=== PATIENT | male | born 1975 | race Two or more races ===

== ENCOUNTER 2023-03-05 06:07 | Outpatient (CLI) | payer OTHER ==
[~2023-03-05 06:07] MED LIST: ALLERGY RELIEF10 M3; BUPROPION XL450 MG; CLONAZEPAM2 MG PO; DAFLONEX-XL 11300 MG PO; LANSOPRAZOL-AM1 EACH PO; LIPITOR20 MG PO; MOBIC7.5 MG; MONTELUKAST SODI4 M1; PREGABALIN75 MG PO; SERTRALINE20 MG/1 ML; SYNTHROID50 MCG PO; ZYLOPRIM100 MG PO
[2023-03-05 07:25] LABS: INR 1.02; PARTIAL THROMBOPLASTIN TIME 28.6 SECONDS (22.0-34.0); PROTHROMBIN TIME 10.7 SECONDS (9.0-11.5)
[2023-03-05] MEDS ORDERED: PERCOCET 5-3251 EACH PO (14:05)
[2023-03-05] MEDS ORDERED: RECTICARE30 GM TOP (14:05)
== END 2023-03-05 06:11 | disposition home or self-care (01) ==
LOC: LAB 06:07
DX: I10 Essential (primary) hypertension (principal)

== ENCOUNTER 2023-03-05 06:21 | Day surgery (SDC) | payer OTHER ==
[2023-03-05] MEDS ORDERED: PERCOCET 5-3251 EACH PO (14:05)
[2023-03-05] MEDS ORDERED: RECTICARE30 GM TOP (14:05)
== END 2023-03-05 18:45 | disposition home or self-care (01) ==
LOC: CIR.AMB 06:21
PROVIDERS: ATTEND Surgery
DX: K60.2 Anal fissure, unspecified (principal); K62.4 Stenosis of anus and rectum; K62.5 Hemorrhage of anus and rectum; R19.5 Other fecal abnormalities; K64.2 Third degree hemorrhoids; I10 Essential (primary) hypertension; Z20.822 Contact with and (suspected) exposure to COVID-19